=== PATIENT | female | born 1975 ===

== ENCOUNTER 2017-01-24 07:28 | Day surgery (SDC) | payer OTHER ==
[~2017-01-24] VITALS: Ht 180.3 cm; Wt 67.0 kg
[~2017-01-24 07:28] MED LIST: 0.9% Sodium Chloride 1,000 ML IV SCH; BIOT1CAP3 PO; CALC-78 PO; CYAN50TA2 PO; Sodium Chloride LOK Flush 10 mL Syringe IV PRN; fentaNYL-PF 50 mCg/mL 2 mL Inj IVPUSH PRN
[2017-01-24] MEDS ORDERED: fentaNYL-PF 50 mCg/mL 2 mL Inj IVPUSH ONE (07:29)
[2017-01-24] MEDS ORDERED: FLUO40CA PO (07:49)
[2017-01-24 08:01] VITALS: BP 114/64; PULSE 71; RESP 17; O2SAT 99
[2017-01-24 09:08] VITALS: BP 98/58; PULSE 74; RESP 16; O2SAT 100
[2017-01-24 09:19] VITALS: BP 112/41; PULSE 53; RESP 16; O2SAT 100
--- NOTE | 2017-01-24 09:27 | ENDO ---
[address] [address] ENDOSCOPY PROCEDURE PATIENT: MEGHAN MEAD : 1975 MR#: [id number] ADMIT: 01/24/2017 JOB ID: [id number] DATE: 01/24/2017 TYPE OF OPERATION: Colonoscopy. PREOPERATIVE DIAGNOSIS(ES): Rectal bleeding. POSTOP DIAGNOSIS: Normal colonoscopy. ANESTHESIA: 1. Fentanyl 150 mcg. 2. Versed 7 mg IV administered. COMPLICATIONS: None. BLOOD LOSS: Minimal. DESCRIPTION OF PROCEDURE: After risks and benefits were explained to the patient, informed consent was obtained. After anesthesia administered, colonoscope was inserted from the rectum to the terminal ileum while mucosa carefully examined. Prep of the patient was excellent. After procedure was done, the scope withdrawn and procedure terminated. FINDINGS: Upon inspection of the anus, no masses, hemorrhoids, ulcers, fissures that were seen. Throughout the entire examination, there were no polyps, masses or lesions. Retroflexion normal. IMPRESSION: Normal colonoscopy. RECOMMENDATION: 1. Repeat colonoscopy in 10 years for colorectal cancer screening. 2. Followup in GI clinic as needed.
== END 2017-01-24 23:59 | disposition home or self-care (01) ==
LOC: END 07:28
PROVIDERS: ATTEND Internal Medicine Gastroenterology
DX: K92.1 Melena (principal); K59.00 Constipation, unspecified
CPT/HCPCS: 45378; 99153; G0500; J2250; J3010; J7030